=== PATIENT | female | born 1930 | race Caucasian/White ===

== ENCOUNTER → 2016-12-27 08:56 | Outpatient (CLI) | payer MEDICARE, BC ==
[2016-05-25 10:49] VITALS: BMI 24.7
[~2016-12-27 08:56] MED LIST: ARTIFICIAL TEAR15 ML EACH EYE; ASPIRIN325 MG PO; ATENOLOL25 MG PO; BAYER CHEWABLE81 MG PO; BETAPACE 80 MG80 MG PO; CARDIZEM CD240 MG PO; COLACE100 MG PO; CORDARONE200 MG PO; COUMADIN3 MG PO; COUMADIN5 MG PO; DILAUDID2 MG PO; ESTRACE1 MG PO; FEMARA2.5 MG PO; FEXOFENADINE H180 MG PO; FORMULA E400 UNIT PO; HYDROCODON-ACE1 EAC7 PO; HYDROCODONE-APA1 TAB PO; IMDUR30 MG; IMDUR30 MG PO; K-DUR20 MEQ PO; LASIX20 MG PO; LEVAQUIN250 MG PO; LEVAQUIN500 MG PO; MINIPRIN81 MG PO; MOTRIN400 MG PO; OMEGA-3100 MG; PLAVIX75 MG PO; PREDNISONE20 MG; PREMARIN0.3 MG; PREMARIN1.25 MG PO; PROTONIX40 MG PO; SYNTHROID125 MCG PO; SYNTHROID88 MCG PO; TRIPLE ANTIB28.35 GM TP; VITAMIN D31000 UNIT PO; VITAMIN E400 UNI2 PO; WARFARIN; ZOCOR40 MG PO
[2016-12-27 10:37] LABS: INR 1.66 (0.85-1.17); PROTIME 19.6 SECONDS (11.6-15.0)
== END | disposition home or self-care (01) ==
LOC: D.LABREF 08:56
PROVIDERS: Family Medicine
DX: Z51.81 Encounter for therapeutic drug level monitoring (principal); Z79.01 Long term (current) use of anticoagulants

== ENCOUNTER → 2017-01-28 16:23 | Outpatient (CLI) | payer MEDICARE, BC ==
[2016-05-25 10:49] VITALS: BMI 24.7
== END | disposition home or self-care (01) ==
LOC: D.MAMMO 09:00
DX: Z85.3 Personal history of malignant neoplasm of breast (principal)

== ENCOUNTER → 2017-08-07 12:48 | Outpatient (CLI) | payer MEDICARE, BC ==
[2016-05-25 10:49] VITALS: BMI 24.7
== END | disposition home or self-care (01) ==
LOC: D.MAMMO 08:30
DX: R92.8 Other abnormal and inconclusive findings on diagnostic imaging of breast (principal)

== ENCOUNTER 2018-06-09 11:45 | Emergency (ER) | payer MEDICARE, BC ==
[~2018-06-09] VITALS: Ht 157.5 cm; Wt 53.2 kg
[2018-06-09 11:57] VITALS: Ht 157.5 cm; Wt 53.2 kg
[2018-06-09 12:26] LABS: BASOPHILS 0.2 % (0-2); EOSINOPHILS 1.1 % (0-7); HEMATOCRIT 39.7 % (36.0-48.0); HEMOGLOBIN 13.3 g/dL (12-16); IMMATURE GRANULOCYTES 0.2 % (0-5); LYMPHOCYTES 18.7 % (15-50); MCH 32.4 pg (26.0-34.0); MCHC 33.5 g/dL (31.0-37.0); MCV 96.6 fL (80.0-100.0); MEAN PLATELET VOLUME 9.6 fL (7.4-10.4); MONOCYTES 10.3 % (2-11); NEUTROPHILS 69.5 % (40-80); RBC 4.11 10x6/uL (4.00-5.40); RDW 13.6 % (11.5-14.5); WBC 8.4 10x3/uL (4.8-10.8)
[2018-06-09 12:39] LABS: INR 1.13 (0.85-1.17); PROTIME 14.1 SECONDS (11.6-15.0)
[2018-06-09 12:45] LABS: PLATELET COUNT 254 10x3/uL (130-400)
[2018-06-09 12:52] LABS: ALBUMIN 3.3 g/dL (3.4-5.0); ALKALINE PHOSPHATASE 59 U/L (46-116); ALT (SGPT) 20 U/L (10-68); BILIRUBIN - TOTAL 0.35 mg/dL (0.2-1.3); CALC OSMOLALITY 273 mosm/kg (275-300); CALCIUM 9.2 mg/dL (8.5-10.1); CARBON DIOXIDE 27.3 mmol/L (21.0-32.0); CHLORIDE - SERUM 103 mmol/L (98-107); CREATININE - SERUM 0.9 mg/dL (0.6-1.3); GLUCOSE 94 mg/dL (74-106); POTASSIUM - SERUM 3.6 mmol/L (3.5-5.1); PROTEIN - SERUM 6.9 g/dL (6.4-8.2); SODIUM 137 mmol/L (136-145); UREA NITROGEN 12 mg/dL (7-18); eGFR NON AFRICAN AMERICAN 63 mL/min (90-120)
[2018-06-09 13:04] LABS: CREATINE KINASE 36 UL (21-215); TROPONIN-I < 0.017 ng/mL (0.000-0.060)
[2018-06-09 15:06] VITALS: BP 121/69
== END 2018-06-09 15:12 | disposition home or self-care (01) ==
LOC: D.ER 11:45
PROVIDERS: Family Medicine
DX: K59.00 Constipation, unspecified (principal); R14.3 Flatulence; I10 Essential (primary) hypertension; I49.3 Ventricular premature depolarization

== ENCOUNTER 2018-09-18 12:30 | Emergency (ER) | payer MEDICARE, BC ==
[~2018-09-18] VITALS: Ht 157.5 cm; Wt 54.4 kg
[2018-09-18 12:37] VITALS: Ht 157.5 cm; Wt 54.4 kg
[2018-09-18 12:58] LABS: BASOPHILS 0.1 % (0-2); EOSINOPHILS 0.7 % (0-7); HEMOGLOBIN 14.1 g/dL (12-16); IMMATURE GRANULOCYTES 0.3 % (0-5); LYMPHOCYTES 16.5 % (15-50); MCH 31.8 pg (26.0-34.0); MCHC 33.6 g/dL (31.0-37.0); MCV 94.6 fL (80.0-100.0); MEAN PLATELET VOLUME 9.6 fL (7.4-10.4); MONOCYTES 8.4 % (2-11); RBC 4.44 10x6/uL (4.00-5.40); RDW 14.2 % (11.5-14.5); WBC 8.8 10x3/uL (4.8-10.8)
[2018-09-18 13:00] LABS: PLATELET COUNT 170 10x3/uL (130-400)
[2018-09-18 13:19] LABS: APTT 24.7 SECONDS (22.8-39.4); INR 1.54 (0.85-1.17); PROTIME 17.9 SECONDS (11.6-15.0)
[2018-09-18 13:26] LABS: ALBUMIN 3.5 g/dL (3.4-5.0); ALKALINE PHOSPHATASE 53 U/L (46-116); ALT (SGPT) 23 U/L (10-68); BILIRUBIN - TOTAL 0.39 mg/dL (0.2-1.3); CALC OSMOLALITY 276 mosm/kg (275-300); CALCIUM 9.2 mg/dL (8.5-10.1); CARBON DIOXIDE 21.6 mmol/L (21.0-32.0); CHLORIDE - SERUM 102 mmol/L (98-107); CREATINE KINASE 48 UL (21-215); CREATININE - SERUM 0.8 mg/dL (0.6-1.3); GLUCOSE 91 mg/dL (74-106); POTASSIUM - SERUM 4.1 mmol/L (3.5-5.1); PROTEIN - SERUM 6.8 g/dL (6.4-8.2); SODIUM 138 mmol/L (136-145); TROPONIN-I < 0.017 ng/mL (0.000-0.060); UREA NITROGEN 15 mg/dL (7-18); eGFR NON AFRICAN AMERICAN 72 mL/min (90-120)
[2018-09-18 14:20] VITALS: BP 126/67
== END 2018-09-18 14:50 | disposition home or self-care (01) ==
LOC: D.ER 12:30
PROVIDERS: Family Medicine
DX: R07.9 Chest pain, unspecified (principal)

== ENCOUNTER 2019-01-25 12:09 | Observation (INO) | payer MEDICARE, BC ==
[2019-01-25] VITALS (7 sets, daily range): BP systolic 105–146; BP diastolic 48–75; BMI 20.1
[~2019-01-25 12:09] MED LIST changes: +SYNTHROID100 MCG PO; -SYNTHROID88 MCG PO
[2019-01-25 12:29] LABS: BASOPHILS 0.2 % (0-2); EOSINOPHILS 1.4 % (0-7); HEMATOCRIT 37.5 % (36.0-48.0); HEMOGLOBIN 12.2 g/dL (12-16); IMMATURE GRANULOCYTES 0.2 % (0-5); LYMPHOCYTES 17.8 % (15-50); MCH 29.5 pg (26.0-34.0); MCHC 32.5 g/dL (31.0-37.0); MCV 90.6 fL (80.0-100.0); MEAN PLATELET VOLUME 9.4 fL (7.4-10.4); NEUTROPHILS 71.4 % (40-80); RBC 4.14 10x6/uL (4.00-5.40); RDW 13.8 % (11.5-14.5); WBC 9.2 10x3/uL (4.8-10.8)
[2019-01-25 12:31] LABS: PLATELET COUNT 294 10x3/uL (130-400)
[2019-01-25 12:39] LABS: APTT 24.5 SECONDS (22.8-39.4); INR 1.28 (0.85-1.17); PROTIME 15.4 SECONDS (11.6-15.0)
[2019-01-25 12:44] LABS: ALBUMIN 3.2 g/dL (3.4-5.0); ALKALINE PHOSPHATASE 69 U/L (46-116); ALT (SGPT) 19 U/L (10-68); BILIRUBIN - TOTAL 0.33 mg/dL (0.2-1.3); CALC OSMOLALITY 275 mosm/kg (275-300); CALCIUM 9.4 mg/dL (8.5-10.1); CARBON DIOXIDE 25.8 mmol/L (21.0-32.0); CHLORIDE - SERUM 102 mmol/L (98-107); CREATININE - SERUM 0.8 mg/dL (0.6-1.3); GLUCOSE 93 mg/dL (74-106); POTASSIUM - SERUM 3.4 mmol/L (3.5-5.1); PROTEIN - SERUM 7.1 g/dL (6.4-8.2); SODIUM 138 mmol/L (136-145); UREA NITROGEN 13 mg/dL (7-18); eGFR NON AFRICAN AMERICAN 72 mL/min (90-120)
--- NOTE | 2019-01-25 12:52 | NUR ---
POC GLUCOSE 91
[2019-01-25 12:53] LABS: CREATINE KINASE 39 UL (21-215); MAGNESIUM - SERUM 1.9 mg/dL (1.8-2.4)
[2019-01-25 12:56] LABS: TROPONIN-I < 0.017 ng/mL (0.000-0.060)
--- NOTE | 2019-01-25 13:12 | NUR ---
REPORTS NO CHANGES IN CHEST PAIN. C/O HEADACHE. NTG TAB GIVEN. ERP INFORMED.
--- NOTE | 2019-01-25 14:46 | NUR ---
TRANSFER FROM ER BY STRETCHER. OREINTED TO ROOM. CALL LIGHT IN REACH. WILL CONT. PLAN OF CARE.
[2019-01-25] MEDS ORDERED: EPIPEN 2-P0.3 MG/0.3 IM (15:35)
[2019-01-25] MEDS ORDERED: FEMARA2.5 MG PO (15:36)
[2019-01-25] MEDS ORDERED: FISH OIL 1,0001 CA1 PO (15:36)
[2019-01-25] MEDS ORDERED: COUMADIN3 MG PO (15:44)
--- NOTE | 2019-01-25 15:59 | NUR ---
URINE SPECIMEN COLLECTED AND TAKEN TO LAB. WILL MONITOR.
[2019-01-25 18:36] LABS: CKMB 0.8 U/L (0.0-3.6); CREATINE KINASE 37 UL (21-215)
[2019-01-25 18:41] LABS: TROPONIN-I < 0.017 ng/mL (0.000-0.060)
--- NOTE | 2019-01-25 20:00 | NUR ---
INITIAL ROUNDS AND ASSESSMENT COMPLETED. PT RESTING IN BED WITH O2 @ 2L/NC. SALINE LOCK TO RFA. SR PER TELEMETRY. NO DISTRESS. MONITOR AND CPOC.
[2019-01-26 01:41] LABS: CKMB 0.7 U/L (0.0-3.6); CREATINE KINASE 32 UL (21-215); TROPONIN-I < 0.017 ng/mL (0.000-0.060)
--- NOTE | 2019-01-26 02:29 | NUR ---
PT RESTING IN BED WITH EYES CLOSED. SR/66 PER TELEMETRY. NO DISTRESS. MONITOR AND CPOC.
[2019-01-26 03:25] VITALS: BP 111/54
--- NOTE | 2019-01-26 06:30 | NUR ---
RECEIVED PT IN BED AAOX4 RESP UNLABORED SKIN W/D ASSISTED UP TO BATHROOM PT TOLERATED WELL
[2019-01-26 06:33] LABS: BASOPHILS 0.2 % (0-2); EOSINOPHILS 3.4 % (0-7); HEMATOCRIT 33.3 % (36.0-48.0); HEMOGLOBIN 10.5 g/dL (12-16); IMMATURE GRANULOCYTES 0.1 % (0-5); MCH 28.8 pg (26.0-34.0); MCHC 31.5 g/dL (31.0-37.0); MCV 91.5 fL (80.0-100.0); MEAN PLATELET VOLUME 9.8 fL (7.4-10.4); MONOCYTES 9.5 % (2-11); NEUTROPHILS 66.8 % (40-80); PLATELET COUNT 267 10x3/uL (130-400); RBC 3.64 10x6/uL (4.00-5.40); RDW 13.9 % (11.5-14.5)
[2019-01-26 07:03] LABS: CALC OSMOLALITY 280 mosm/kg (275-300); CALCIUM 8.7 mg/dL (8.5-10.1); CARBON DIOXIDE 28.3 mmol/L (21.0-32.0); CHLORIDE - SERUM 106 mmol/L (98-107); CKMB 0.7 U/L (0.0-3.6); CREATINE KINASE 33 UL (21-215); CREATININE - SERUM 0.8 mg/dL (0.6-1.3); GLUCOSE 86 mg/dL (74-106); MAGNESIUM - SERUM 1.9 mg/dL (1.8-2.4); SODIUM 141 mmol/L (136-145); TROPONIN-I < 0.017 ng/mL (0.000-0.060); UREA NITROGEN 16 mg/dL (7-18); eGFR NON AFRICAN AMERICAN 72 mL/min (90-120)
[2019-01-26 08:05] VITALS: BP 138/73
[2019-01-26 12:00] VITALS: BP 144/79
[2019-01-26 12:46] VITALS: BMI 20.3
--- NOTE | 2019-01-26 14:00 | NUR ---
RESTING QUIETLY NAD NOTED
--- NOTE | 2019-01-26 16:45 | NUR ---
REVIEQWED DISCHARGE INSTRUCTIONS WITH PT AND SON BOTH STATE UNDERSTANDING COPY GIVEN DCD SALINE LOCK TO RFA WITH IV CATHETER INTACT SITE FREE OF REDNESS OR EDEMA PT DISCHARGED HOME IN STABLE CONDITION WITH ALL PERSONAL BELONGINGS LEFT UNIT VIA W/C
--- NOTE | 2019-01-27 08:59 | MORECARE ---
CASE MANAGEMENT DISCHARGE SUMMARY PATIENT: WARREN TAPIA UNIT: [id number] ADM DATE: 01/25/19 AGE: 88 : 30 SEX: F ROOM/BED: D.2114 AUTHOR: ADELINA HOOVER PHYSICIAN: REFERRING PHYSICIAN: FREYA TRENT MD DATE OF SERVICE: 01/27/19 Discharge Plan Patient Name: WARREN TAPIA [facility] [facility] 1930 Planned Disposition: Home Anticipated Discharge Date: 01/26/19 Discharge Date: 01/26/2019 Expected LOS: 1 Initial Reviewer: [email or web address] Initial Review Date: 01/27/2019 Generated: 01/27/19 9:59 am Patient Name: WARREN TAPIA Page [phone] at 0859 All edits/amendments must be made on the electronic document DICTATION DATE: 01/27/1959 GOLF COURSE DESIGNER: YASHIRA 01/27/19 0859 RPT#: [id number] DC DATE:01/26/19 STATUS: DIS IN [facility] [address] [place] [address] END OF REPORT
--- NOTE | 2019-01-28 10:39 | HP ---
PATIENT: WARREN TAPIA MEDICAL RECORD: [id number] ACCOUNT: [id number] LOCATION:[address] : 30 ADMISSION DATE: 01/25/19 PCP: PIYUSH VAZQUEZ MD HISTORY AND PHYSICAL EXAMINATION ADMITTING DIAGNOSES: 1. Chest pain. 2. 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 3. Mitral regurgitation. 4. Coumadin anticoagulation. 5. Hyperlipidemia. 6. Hypertension. 7. Paroxysmal atrial fibrillation. HISTORY OF PRESENT ILLNESS: Mrs. Tapia presents with an acute onset of chest pain. This happened yesterday while she was at [facility]. She then had a near syncopal episode. No heart rate or blood pressure were obtained during the episode. Since she has been in the hospital, she has had no further episodes of chest discomfort, no further episodes of syncope or near syncope. She had an echocardiogram today revealing preserved LV function, sinus rhythm. Her valves are intact. She has mild to moderate mitral regurgitation. Aortic valve has no significant stenosis or regurgitation. PHYSICAL EXAMINATION: GENERAL APPEARANCE: Well-nourished, well-developed, appears stated age. Level of distress, comfortable. PSYCHIATRIC: Mental status, alert, normal affect. Orientation, oriented to time, place and person. EYES: Lids and conjunctiva, noninjected. No discharge, no pallor. ENT: Lips, teeth, gums, normal dentition. Oropharynx, no cyanosis, no pallor. NECK: Carotid arteries, bilateral normal upstroke, no bruits, no thrills. JUGULAR VEINS: No jugular venous pressure or distention. CERVICAL LYMPH NODES: Nontender, nonenlarged. THYROID: Not enlarged. Nontender. No nodules. LUNGS: Respiratory effort, unlabored. CHEST: Normal curvature. No thoracic deformity. No chest wall tenderness. Percussion, resonant. Auscultation, clear. No wheezes, no rales, no rhonchi. CARDIOVASCULAR: Precordial exam, nondisplaced. No heaves or pericardial thrills. Rate and rhythm, regular. Heart sounds, normal S1, normal S2. No S3, no gallop, no rub. Systolic murmur, not heard. Diastolic murmur, not heard. EXTREMITIES: No cyanosis, no edema. Peripheral pulses, full and equal in all extremities, except as noted. No bruits appreciated. ABDOMEN: Soft, nondistended. Normal aorta. No bruit. Nontender. No masses. Liver, nontender, no hepatomegaly. Spleen, nontender, no splenomegaly. MUSCULOSKELETAL: No joint tenderness. No joint swelling. No erythema. NEUROLOGICAL: Normal gait, normal strength, normal tone. SKIN: Warm and dry. OVERALL IMPRESSION: Chest pain of unknown etiology. Normal EKG, normal troponin, no further episodes of chest pain. Cardiac catheterization was performed 6 years ago. She had no disease at that time when she had her valves replaced. At this time, we will observe on telemetry, see if she has any arrhythmias, any further chest pain. Continue her current medications. HISTORY AND PHYSICAL [id number] WARREN TAPIA TRANSINT:[id number] Voice Confirmation ID: [id number] DOCUMENT ID: [id number] MARGO ESPOSITO MD at 1039 CC: [id number] DICTATION DATE: 01/26/19827 BURN TABLE OPERATOR: 01/26/19 1150 DIS IN 01/26/19 [place] [id number] [place] [address]
--- NOTE | 2019-01-28 10:39 | EC ---
PATIENT:WARREN TAPIA DATE OF SERVICE: 01/25/19 SEX: F MEDICAL RECORD: [id number] DATE OF : 30 LOCATION:D.M2 D.211 AGE OF PATIENT: 88 ADMISSION DATE: 01/25/19 REFERRING PHYSICIAN: INTERPRETING PHYSICIAN: MARGO SANCHES MD ECHOCARDIOGRAM REPORT ECHO CHARGES 4 ECHO COMPLETE Date: 01/26/19 CLINICAL DIAGNOSIS: HX OF MVR/AVR, CHEST PAIN, NEAR SYNCOPE ECHOCARDIOGRAPHIC MEASUREMENTS (adult normal given) AC root (d.<3.7cm) 2.7 cm LV Septum d (<1.2 cm> 0.5 cm Valve Excursion 1.7 cm LV Septum (systole) 1.0 cm Left Atria (s.<4.0cm> 2.4 cm LVPW d(<1.2cm) 0.8 cm RV (d.<2.3cm) 2.4 cm LVPW (sytole) 1.0 cm LV diastole(<5.6CM) 4.6 cm MV E-F(>70mm/sec) cm LV systole 3.7 cm LVOT Diameter 1.5 cm MV exc.(>10mm) cm Est.ejection fraction (50-75%) % DOPPLER: LVIT cm/sec A 125 cm/sec E 150 cm/sec LA cm/sec RVSP 26 mmHg LVOT 110 cm/sec AOP1/2T m/s Asc. Ao 153 cm/sec RVOT 49 cm/sec RA cm/sec PA 70 cm/sec AV Gradient Peak 9.3 mmHg AV Mean 4.2 mmHg AV Area 1.3 cm MV Gradient Peak 14.6 mmHg MV Mean 8.0 mmHg MV Area cm COMMENTS: Group Activities Aide: Naty SOTO Auto Wash Buffer: 1 Dr. Sanches TAPE# PACS Pericardial Effusion N DATE OF SERVICE: 01/26/2019 FINDINGS: 1. Left ventricular chamber size is within normal limits. Left ventricular systolic function is normal. Overall ejection fraction estimated at 50%. 2. Left atrium, right atrium, and right ventricular chamber sizes are within normal limits. 3. Valvular structures: Aortic valve and mitral valve are both replaced with tissue prosthesis, both have normal structure and function in this position. 4. Doppler interrogation reveals moderate mitral regurgitation, trace tricuspid ECHOCARDIOGRAM REPORT [id number] WARREN TAPIA regurgitation, no other valvular insufficiency or stenosis. Pulmonary systolic pressure is estimated at 27 mmHg. 5. No evidence of pericardial effusion or left ventricular thrombus. TRANSINT:[id number] Voice Confirmation ID: [id number] DOCUMENT ID: [id number] MARGO SANCHES MD at 1039 CC: [id number] DICTATION DATE: 01/26/19 1159 CONVENTION SERVICES MANAGER: 01/26/19 1408 DIS IN 01/26/19 [facility] [address] [place] [id number]
== END 2019-01-26 16:45 | disposition home or self-care (01) ==
LOC: D.ER 12:09 → OBSVTIME 13:54 → D.EDHOLD 13:54 → D.M2 14:02
PROVIDERS: Family Medicine; ADMIT Internal Medicine Nephrology; ATTEND Internal Medicine Nephrology
DX: R07.89 Other chest pain (principal); Z95.2 Presence of prosthetic heart valve; I34.0 Nonrheumatic mitral (valve) insufficiency; Z79.01 Long term (current) use of anticoagulants; E78.5 Hyperlipidemia, unspecified; I10 Essential (primary) hypertension; I48.0 Paroxysmal atrial fibrillation; R55 Syncope and collapse; E03.9 Hypothyroidism, unspecified; K21.9 Gastro-esophageal reflux disease without esophagitis

== ENCOUNTER 2019-03-01 12:21 | Emergency (ER) | payer MEDICARE, BC ==
[~2019-03-01 12:21] MED LIST changes: +EPIPEN 2-P0.3 MG/0.3 IM; +FISH OIL 1,0001 CA1 PO
[2019-03-01 12:29] VITALS: BMI 24.7
[2019-03-01 13:18] LABS: BASOPHILS 0.4 % (0-2); EOSINOPHILS 6.7 % (0-7); IMMATURE GRANULOCYTES 0.3 % (0-5); LYMPHOCYTES 19.9 % (15-50); MCH 29.1 pg (26.0-34.0); MCHC 32.4 g/dL (31.0-37.0); MCV 89.9 fL (80.0-100.0); MEAN PLATELET VOLUME 9.5 fL (7.4-10.4); MONOCYTES 9.2 % (2-11); NEUTROPHILS 63.5 % (40-80); PLATELET COUNT 260 10x3/uL (130-400); RBC 3.78 10x6/uL (4.00-5.40); RDW 14.5 % (11.5-14.5); WBC 7.5 10x3/uL (4.8-10.8)
[2019-03-01 13:28] LABS: ALKALINE PHOSPHATASE 63 U/L (46-116); ALT (SGPT) 17 U/L (10-68); BILIRUBIN - TOTAL 0.36 mg/dL (0.2-1.3); CALC OSMOLALITY 278 mosm/kg (275-300); CALCIUM 9.3 mg/dL (8.5-10.1); CARBON DIOXIDE 26.7 mmol/L (21.0-32.0); CHLORIDE - SERUM 105 mmol/L (98-107); CREATININE - SERUM 0.7 mg/dL (0.6-1.3); GLUCOSE 83 mg/dL (74-106); POTASSIUM - SERUM 3.5 mmol/L (3.5-5.1); PROTEIN - SERUM 6.7 g/dL (6.4-8.2); SODIUM 140 mmol/L (136-145); UREA NITROGEN 15 mg/dL (7-18); eGFR NON AFRICAN AMERICAN 83 mL/min (90-120)
[2019-03-01 13:40] LABS: CKMB 1.8 U/L (0.0-3.6); CREATINE KINASE 44 UL (21-215); PRO BNP 238 pg/mL (0-450)
[2019-03-01 13:41] LABS: TROPONIN-I < 0.017 ng/mL (0.000-0.060)
[2019-03-01 15:45] VITALS: BP 144/63
== END 2019-03-01 15:46 | disposition home or self-care (01) ==
LOC: D.ER 12:21
PROVIDERS: Emergency Medicine
DX: R06.00 Dyspnea, unspecified (principal); D64.9 Anemia, unspecified; R07.9 Chest pain, unspecified

== ENCOUNTER → 2019-03-12 10:17 | Outpatient (CLI) | payer MEDICARE, BC ==
[2019-03-01 12:29] VITALS: BMI 24.7
--- NOTE | 2019-03-13 13:44 | EC ---
PATIENT:WARREN TAPIA DATE OF SERVICE: 03/12/19 SEX: F MEDICAL RECORD: [id number] DATE OF : 30 [facility] AGE OF PATIENT: 88 ADMISSION DATE: 03/12/19 REFERRING PHYSICIAN: INTERPRETING PHYSICIAN: MARGO SANCHES MD ECHOCARDIOGRAM REPORT ECHO CHARGES 4 ECHO COMPLETE Date: 03/12/19 CLINICAL DIAGNOSIS: MR/MV REPAIR/AVR H/O HTN/A-FIB ECHOCARDIOGRAPHIC MEASUREMENTS (adult normal given) AC root (d.<3.7cm) 2.3 cm LV Septum d (<1.2 cm> 1.5 cm Valve Excursion 0.8 cm LV Septum (systole) 1.9 cm Left Atria (s.<4.0cm> 3.0 cm LVPW d(<1.2cm) 1.0 cm RV (d.<2.3cm) 2.1 cm LVPW (sytole) 1.7 cm LV diastole(<5.6CM) 3.8 cm MV E-F(>70mm/sec) cm LV systole 2.0 cm LVOT Diameter 1.6 cm MV exc.(>10mm) cm Est.ejection fraction (50-75%) % DOPPLER: LVIT cm/sec A 176 cm/sec E 158 cm/sec LA cm/sec RVSP 32.0 mmHg LVOT 112 cm/sec AOP1/2T m/s Asc. Ao 107 cm/sec RVOT 65.0 cm/sec RA cm/sec PA 80.0 cm/sec AV Gradient Peak 4.6 mmHg AV Mean 2.3 mmHg AV Area 2.2 cm MV Gradient Peak 13.3 mmHg MV Mean 6.8 mmHg MV Area cm COMMENTS: OP - HC Reservation Manager: Geovany ANTOINE BRYAN Lead Teacher: [address] Dr. Sanches TAPE# PACS Pericardial Effusion N DATE OF SERVICE: 03/12/2019 PROCEDURE: Echocardiogram. FINDINGS: 1. Left ventricular chamber size is within normal limits. Left ventricular systolic function is normal. Overall ejection fraction estimated at 50%. 2. Left atrium, right atrium, and right ventricular chamber sizes are within normal limits. 3. Valvular structures: Aortic valve is replaced with a tissue prosthesis with ECHOCARDIOGRAM REPORT [id number] WARREN TAPIA normal structure and function in this position. The remaining valvular structures have normal structure and motion. 4. Doppler interrogation reveals only trace mitral regurgitation, mild tricuspid regurgitation, no other valvular insufficiency or stenosis. Pulmonary systolic pressure is normal estimated at 32 mmHg. 5. No evidence of pericardial effusion or left ventricular thrombus. TRANSINT:[id number] Voice Confirmation ID: [id number] DOCUMENT ID: [id number] MARGO SANCHES MD at 1344 CC: [id number] DICTATION DATE: 03/13/[address] INSPECTOR: 03/13/19 1115 [facility] CLI 03/12/[address] [address]
== END | disposition home or self-care (01) ==
LOC: D.HCCARDIO 10:17
PROVIDERS: ATTEND Internal Medicine Interventional Cardiology
DX: I34.0 Nonrheumatic mitral (valve) insufficiency (principal)

== ENCOUNTER 2019-03-23 08:45 | Inpatient (IN) | payer MEDICARE, BC ==
[~2019-03-23] VITALS: Ht 157.5 cm; Wt 51.3 kg
[2019-03-23] MEDS ORDERED: VITAMIN D31000 UNI2 PO ×2 (08:52→08:53)
[2019-03-23 09:36] LABS: BASOPHILS 0.4 % (0-2); HEMATOCRIT 34.2 % (36.0-48.0); HEMOGLOBIN 11.1 g/dL (12-16); IMMATURE GRANULOCYTES 0.3 % (0-5); LYMPHOCYTES 22.5 % (15-50); MCHC 32.5 g/dL (31.0-37.0); MCV 89.3 fL (80.0-100.0); MEAN PLATELET VOLUME 9.8 fL (7.4-10.4); MONOCYTES 7.9 % (2-11); NEUTROPHILS 61.9 % (40-80); RBC 3.83 10x6/uL (4.00-5.40); RDW 15.2 % (11.5-14.5); WBC 7.7 10x3/uL (4.8-10.8)
[2019-03-23 09:38] LABS: PLATELET COUNT 206 10x3/uL (130-400)
[2019-03-23 09:57] LABS: ALKALINE PHOSPHATASE 62 U/L (46-116); ALT (SGPT) 16 U/L (10-68); BILIRUBIN - TOTAL 0.45 mg/dL (0.2-1.3); CALC OSMOLALITY 279 mosm/kg (275-300); CARBON DIOXIDE 29.2 mmol/L (21.0-32.0); CHLORIDE - SERUM 104 mmol/L (98-107); CREATININE - SERUM 0.8 mg/dL (0.6-1.3); GLUCOSE 83 mg/dL (74-106); POTASSIUM - SERUM 3.6 mmol/L (3.5-5.1); PROTEIN - SERUM 6.4 g/dL (6.4-8.2); SODIUM 141 mmol/L (136-145); UREA NITROGEN 12 mg/dL (7-18); eGFR NON AFRICAN AMERICAN 72 mL/min (90-120)
[2019-03-23 10:08] LABS: CKMB 1.2 U/L (0.0-3.6); CREATINE KINASE 45 UL (21-215); TROPONIN-I < 0.017 ng/mL (0.000-0.060)
[2019-03-23 10:10] LABS: APPEARANCE CLEAR (CLEAR); COLOR YELLOW (YELLOW)
[2019-03-23 10:11] LABS: BACTERIA MANY /hpf (NONE SEEN); BILIRUBIN NEGATIVE (NEGATIVE); EPITHELIAL CELLS 0-5 /hpf (0-5); GLUCOSE NEGATIVE (NEGATIVE); KETONE NEGATIVE (NEGATIVE); NITRITE POSITIVE (NEGATIVE); PROTEIN NEGATIVE (NEGATIVE); RED CELLS - URINE 0-5 /hpf (0-5); SPECIFIC GRAVITY 1.005 (1.005-1.020); UROBILINOGEN NORMAL (NORMAL)
--- NOTE | 2019-03-23 12:05 | NUR ---
PT STARTED COMPLAINING OF PAIN AND ITCHING TO THE LEFT ARM, PROXIMAL FROM IV SITE AFTER LEVAQUIN INFUSED. NOTED SLIGHT REDNESS TO THE AREA WELL PATIENT SCRATCHING THE AREA. NOTIFIED DR. ECHAVARRIA IMMEDIATELY. HE ORDERED 25MG BENADRYL IV.
--- NOTE | 2019-03-23 15:24 | NUR ---
RECEIVED PT FROM ER. PT IS AA BUT CONFUSED TO TIME AND SITUATION. SON AT BEDSIDE. PT IS UP WITH ASSIST. RR EVEN AND UNLABORED ON RA. VSS AND WNL. NS INFUSING @125ML/HR VIA L.AC PIV. QUICKSTART, HISTORY, AND MED REQ COMPLETE. TELEMETRY PLACED ON PT. NOTIFIED CHARGE NURSE FOR NAPHTHALENE OPERATOR. WILL CTM.
--- NOTE | 2019-03-23 15:36 | NUR ---
PT IS RUNNING NORMAL SINUS RHTHYM AT 70. ROGER MAT PLACED ON BED. WILL CTM.
--- NOTE | 2019-03-23 15:40 | MORECARE ---
CASE MANAGEMENT DISCHARGE SUMMARY PATIENT: WARREN TAPIA UNIT: [id number] ADM DATE: 03/23/19 AGE: 88 : 30 SEX: F ROOM/BED: D.1205 AUTHOR: KIKO,DOC PHYSICIAN: REFERRING PHYSICIAN: WANDA THOMAS MD DATE OF SERVICE: 03/23/19 Discharge Plan Patient Name: WARREN TAPIA Facility: [facility]:[place] : 1930 Planned Disposition: Assisted Living Anticipated Discharge Date: 03/25/19 Discharge Date: Expected LOS: 2 Initial Reviewer: [email or web address] Initial Review Date: 03/23/2019 Generated: 03/23/19 4:40 pm Comments DCP- Discharge Planning Updated by [email or web address]: Irasema Lim on 03/23/19 2:[address] Patient Name: WARREN TAPIA Admission Status: ER Accout number: [id number] Admission Date: 03-23-2019 : 1930 Admission Diagnosis: Attending: WANDA THOMAS Current LOS: 1 Anticipated DC Date: 03-25-2019 Planned Disposition: Assisted Living Primary Insurance: MEDICARE A & B Discharge Planning Comments: CM met with patient and her son to complete initial dc planning assessment. CM educated patient on the CM role and verbal consent given by patient to complete assessment. CM verified patient's address, phone number, and emergency contact phone numbers. Patient lives at [facility] alone. At discharge patient plans to return to independent living and feels this is a safe discharge. CM discussed availability of home health, rehab services, and medical equipment. Patient denied known discharge needs at this time. Patient reports her son will transport er home at time of discharge. CM will continue to follow and will assist as needed with dc plans/needs. Endoscopy Specialty Technician: Irasema Lim RN, [facility] DCPIA - Discharge Planning Initial Assessment Updated by [email or web address]: Irasema Lim on 03/23/19 3:36 pm * Is the patient Alert and Oriented? Yes * How many steps to enter\exit or inside your home? None * PCP Dr. De La Rosa * Pharmacy [facility] * Preadmission Environment [facility] * Other Environment [facility] * Facility Name [facility] * ADLs Independent * Equipment Rolling Walker * List name and contact numbers for known caregivers / representatives who currently or will assist patient after discharge: Harvey wiley - [phone] * Verbal permission to speak to the caregivers and representatives has been obtained from the patient. Yes * Community resources currently utilized None * Additional services required to return to the preadmission environment? No * Can the patient safely return to the preadmission environment? Yes * Has this patient been hospitalized within the prior 30 days at any hospital? No Patient Name: WARREN TAPIA Page [phone] at 1540 All edits/amendments must be made on the electronic document DICTATION DATE: 03/23/191539 BUSINESS DEVELOPMENT OFFICER: YASHIRA 03/23/191539 RPT#: [id number] DC DATE: STATUS: ADM IN [facility] [address] [place] [address] END OF REPORT
[2019-03-23 15:47] VITALS: BP 144/64; BMI 19.0
--- NOTE | 2019-03-23 16:32 | NUR ---
PREVIOUS PIV IN THE LEFT AC KEPT OCCLUDING. STARTED NEW PIV TO THE LEFT FOREARM 22 GA X1 ATTEMPT. PT TOLERATED WELL. FLUSHED WITH 10ML NS TO CONFIRM PATENCY. NS CURRENTLY INFUSING @125ML/HR VIA L.FOR PIV. WILL CTM.
--- NOTE | 2019-03-23 18:33 | NUR ---
PT CURRENTLY LYING SEMI FOWLERS. CALL LIGHT W/I REACH. EATING DINNER. RR EVEN AND UNLABORED ON RA. NS INFUSING @125ML/HR VIA L.FOR PIV. NO S/S OF DISTRESS NOTED. PT INSTRUCTED ON FALL PRECAUTIONS AND NEED TO CALL FOR HELP BEFORE GETTING UP. PT VERBALIZED UNDERSTANDING. NO S/S OF DISTRESS NOTED. WILL CTM.
--- NOTE | 2019-03-23 19:48 | NUR ---
PATIENT RESTING IN BED WITH NO S/S OF DISTRESS. PATIENT DENIES OTHER NEEDS AT THIS TIME. BED IN LOWEST POSITION AND CALL LIGHT WITHIN REACH. ENCOURAGED THE PATIENT TO CALL IF SHE HAS NEEDS. WILL CONTINUE TO MONITOR.
[2019-03-23 19:56] VITALS: BP 125/53
[2019-03-23 23:37] VITALS: BP 120/57
[2019-03-24 03:59] VITALS: BP 150/59
[2019-03-24 07:10] LABS: BASOPHILS 0.6 % (0-2); EOSINOPHILS 9.4 % (0-7); HEMATOCRIT 34.9 % (36.0-48.0); IMMATURE GRANULOCYTES 0.1 % (0-5); LYMPHOCYTES 16.9 % (15-50); MCH 28.6 pg (26.0-34.0); MCHC 31.5 g/dL (31.0-37.0); MCV 90.6 fL (80.0-100.0); MEAN PLATELET VOLUME 10.1 fL (7.4-10.4); MONOCYTES 11.6 % (2-11); NEUTROPHILS 61.4 % (40-80); RBC 3.85 10x6/uL (4.00-5.40); RDW 15.3 % (11.5-14.5); WBC 6.8 10x3/uL (4.8-10.8)
[2019-03-24 07:13] LABS: PLATELET COUNT 255 10x3/uL (130-400)
[2019-03-24 07:20] LABS: CALC OSMOLALITY 286 mosm/kg (275-300); CALCIUM 8.8 mg/dL (8.5-10.1); CARBON DIOXIDE 29.1 mmol/L (21.0-32.0); CHLORIDE - SERUM 110 mmol/L (98-107); CKMB 1.2 U/L (0.0-3.6); CREATINE KINASE 45 UL (21-215); CREATININE - SERUM 0.9 mg/dL (0.6-1.3); GLUCOSE 80 mg/dL (74-106); MAGNESIUM - SERUM 1.9 mg/dL (1.8-2.4); POTASSIUM - SERUM 3.8 mmol/L (3.5-5.1); SODIUM 145 mmol/L (136-145); TROPONIN-I < 0.017 ng/mL (0.000-0.060); UREA NITROGEN 10 mg/dL (7-18); eGFR NON AFRICAN AMERICAN 62 mL/min (90-120)
[2019-03-24 08:27] VITALS: Ht 157.5 cm; Wt 51.3 kg
--- NOTE | 2019-03-24 10:08 | NUR ---
PT UP IN BED, RESTING WITH EYES OPEN AND LIGHTS OFF. ASSISTED TO RESTROOM, STAND BY ASSIST ONLY. NO COMPLICATIONS. IV INFUSING TO L WRIST, PATENT NONTENDER. FALL PRECAUTIONS IN PLACE. BED IN LOWEST POSTION, SIDERAILS UP X 2. CALL LIGHT AND BEDSIDE TABLE IN REACH. NO COMPLAINTS VOICED AT THIS TIME. WILL CONTINUE TO MONITOR.
[2019-03-24 11:26] LABS: INR 1.46 (0.85-1.17); PROTIME 17.1 SECONDS (11.6-15.0)
[2019-03-24 13:40] VITALS: BP 146/50
--- NOTE | 2019-03-24 15:01 | NUR ---
I have reviewed this patient and I concur with the Shift Assessment completed by the Licensed Practical Nurse today this shift.
[2019-03-24 19:33] VITALS: BP 134/57
--- NOTE | 2019-03-24 23:28 | NUR ---
HAS BEEN UP TO BR TO VOID SEVERAL TIMES SO FAR THIS SHIFT. ACTIVATES BED ALARM. MORE CONFUSED. ROGER ALARM IN USE. CL IN REACH.
[2019-03-25 00:10] VITALS: BP 129/64
[2019-03-25 07:16] LABS: BASOPHILS 0.4 % (0-2); EOSINOPHILS 10.1 % (0-7); HEMOGLOBIN 11.1 g/dL (12-16); IMMATURE GRANULOCYTES 0.3 % (0-5); LYMPHOCYTES 17.5 % (15-50); MCH 29.4 pg (26.0-34.0); MCHC 32.6 g/dL (31.0-37.0); MCV 90.2 fL (80.0-100.0); MEAN PLATELET VOLUME 10.3 fL (7.4-10.4); MONOCYTES 9.6 % (2-11); NEUTROPHILS 62.1 % (40-80); PLATELET COUNT 254 10x3/uL (130-400); RBC 3.77 10x6/uL (4.00-5.40); RDW 15.3 % (11.5-14.5); WBC 7.1 10x3/uL (4.8-10.8)
[2019-03-25 07:53] LABS: ALBUMIN 2.9 g/dL (3.4-5.0); ALKALINE PHOSPHATASE 62 U/L (46-116); ALT (SGPT) 13 U/L (10-68); BILIRUBIN - TOTAL 0.47 mg/dL (0.2-1.3); CALC OSMOLALITY 277 mosm/kg (275-300); CALCIUM 9.1 mg/dL (8.5-10.1); CARBON DIOXIDE 25.1 mmol/L (21.0-32.0); CHLORIDE - SERUM 107 mmol/L (98-107); CREATININE - SERUM 0.6 mg/dL (0.6-1.3); GLUCOSE 84 mg/dL (74-106); POTASSIUM - SERUM 3.5 mmol/L (3.5-5.1); PROTEIN - SERUM 6.4 g/dL (6.4-8.2); SODIUM 141 mmol/L (136-145); UREA NITROGEN 7 mg/dL (7-18); eGFR NON AFRICAN AMERICAN > 90 mL/min (90-120)
[2019-03-25 08:09] VITALS: BP 121/59
[2019-03-25 08:20] LABS: INR 1.37 (0.85-1.17); PROTIME 16.3 SECONDS (11.6-15.0)
--- NOTE | 2019-03-25 09:03 | NUR ---
AM MEDS GIVEN AT THIS TIME. PT STATES THAT SHE WANTS TO GO HOME, ASKING WHEN THE DOCTOR WILL BE MAKING HIS ROUNDS. INFORMED PT THAT I DID NOT KNOW A TIME. BUT SOMEONE WOULD BE BY TO SEE HER TODAY. PT STATES " MY SON IS LEAVING FOR [place], SO I HAVE TO GO HOME TODAY." PT DENIES ANY NEEDS AT THIS TIME. CALL LIGHT IN REACH, NAD NOTED,W ILL CONTINUE TO MONITOR.
--- NOTE | 2019-03-25 09:48 | NUR ---
HELPED PT TO BATHROOM AND BACK TO BED, PT STATES "YOU DONT HAVE TO HELP ME, I CAN GO ON MY OWN. IF YOU HELP ME THEN THE DOCTOR WILL NOT LET ME GO HOME." INFORMED PT THAT SINCE SHE HAS HISTORY OF FALLS THAT WE HAVE TO HELP TO BATHROOM AND HAVE ROGER ALARM ON. PT NOT VERY HAPPY BUT COOPERATIVE. DENIES ANY NEEDS AT THIS TIME. CALL LIGHT IN REACH, ROGER ALARM ON, NAD NOTED, WILL CONTINUE TO MONITOR.
--- NOTE | 2019-03-25 10:00 | EC ---
PATIENT:WARREN TAPIA DATE OF SERVICE: 03/23/19 SEX: F MEDICAL RECORD: [id number] DATE OF : 30 LOCATION:D.M3 D.120 AGE OF PATIENT: 88 ADMISSION DATE: 03/23/19 REFERRING PHYSICIAN: INTERPRETING PHYSICIAN: MARGO SANCHES MD ECHOCARDIOGRAM REPORT ECHO CHARGES 4 ECHO COMPLETE Date: 03/24/19 CLINICAL DIAGNOSIS: SYNCOPE/ HX OF AVR ECHOCARDIOGRAPHIC MEASUREMENTS (adult normal given) AC root (d.<3.7cm) 3.2 cm LV Septum d (<1.2 cm> 1.3 cm Valve Excursion 1.5 cm LV Septum (systole) 1.5 cm Left Atria (s.<4.0cm> 3.1 cm LVPW d(<1.2cm) 1.3 cm RV (d.<2.3cm) 2.5 cm LVPW (sytole) 1.5 cm LV diastole(<5.6CM) 4.1 cm MV E-F(>70mm/sec) cm LV systole 3.0 cm LVOT Diameter 1.7 cm MV exc.(>10mm) cm Est.ejection fraction (50-75%) % DOPPLER: LVIT cm/sec A 147 cm/sec E 176 cm/sec LA cm/sec RVSP 18 mmHg LVOT 104 cm/sec AOP1/2T m/s Asc. Ao 124 cm/sec RVOT 86 cm/sec RA cm/sec PA 107 cm/sec AV Gradient Peak 6.16 mmHg AV Mean 3.82 mmHg AV Area 1.5 cm MV Gradient Peak 18.34mmHg MV Mean 9.25 mmHg MV Area cm COMMENTS: Polygraph Operator: 2 CLARISSA ZAMORA Director Channel: [address] Dr. [address] TAPE# PACS Pericardial Effusion N DATE OF SERVICE: FINDINGS: 1. Left ventricular chamber size is within normal limits. Left ventricular systolic function is normal. Overall ejection fraction estimated at 55%. 2. Left atrium, right atrium, right ventricle chamber size is within normal limits. 3. Valvular structures: Aortic valve is replaced with a tissue prosthesis with normal structure and function in this position. The remaining valvular structures have normal structure and motion. ECHOCARDIOGRAM REPORT [id number] WARREN TAPIA 4. Doppler interrogation reveals [id number] mitral regurgitation, no other valvular insufficiency or stenosis. Pulmonary systolic pressure is estimated at 18 mmHg. 5. No evidence of pericardial effusion or left ventricular thrombus. TRANSINT:[id number] Voice Confirmation ID: [id number] DOCUMENT ID: [id number] MARGO SANCHES MD at 1000 CC: [id number] DICTATION DATE: 03/24/19 1558 FLEET DISPATCH MANAGER: 03/25/19 0011 ADM IN [place] [id number] [place] [id number]
--- NOTE | 2019-03-25 10:00 | CN ---
PATIENT NAME:WARREN TAPIA MEDICAL RECORD: [id number] : 30 LOCATION:D. D.1205 ADMIT DATE: 03/23/19 ACCOUNT: [id number] CONSULTING PHYSICIAN: MARGO ESPOSITO MD REFERRING PHYSICIAN: WANDA THOMAS MD DATE OF CONSULTATION: 03/24/2019 CARDIOLOGY CONSULTATION DIAGNOSES: 1. Syncope. 2. Coronary artery disease. 3. Status post coronary artery bypass graft surgery. 4. Status post percutaneous transluminal coronary angioplasty stent. 5. Aortic valve replacement tissue prosthesis. 6. Paroxysmal atrial fibrillation. 7. Hypertension. 8. Hyperlipidemia. HISTORY OF PRESENT ILLNESS: Mrs. Tapia is known to us with a significant cardiac history of coronary artery disease, bypass surgery, aortic valve replacement, and atrial fibrillation. She presents with recurrent syncope. Here, she has not had any dysrhythmias. She has not had any chest pain or chest discomfort. Troponin is normal. EKG is with no ST-T abnormalities. An echocardiogram was performed, her overall LV function is normal. Her valvular structures are normal. The prosthetic valve in aortic position has normal structure and function. She has not had any hypotension since she has been here. PHYSICAL EXAMINATION: GENERAL APPEARANCE: Well-nourished, well-developed, appears stated age. Level of distress, comfortable. PSYCHIATRIC: Mental status, alert, normal affect. Orientation, oriented to time, place and person. EYES: Lids and conjunctiva, noninjected. No discharge, no pallor. ENT: Lips, teeth, gums, normal dentition. Oropharynx, no cyanosis, no pallor. NECK: Carotid arteries, bilateral normal upstroke, no bruits, no thrills. JUGULAR VEINS: No jugular venous pressure or distention. CERVICAL LYMPH NODES: Nontender, nonenlarged. THYROID: Not enlarged. Nontender. No nodules. LUNGS: Respiratory effort, unlabored. CHEST: Normal curvature. No thoracic deformity. No chest wall tenderness. Percussion, resonant. Auscultation, clear. No wheezes, no rales, no rhonchi. CARDIOVASCULAR: Precordial exam, nondisplaced. No heaves or pericardial thrills. Rate and rhythm, regular. Heart sounds, normal S1, normal S2. No S3, no gallop, no rub. Systolic murmur, not heard. Diastolic murmur, not heard. EXTREMITIES: No cyanosis, no edema. Peripheral pulses, full and equal in all extremities, except as noted. No bruits appreciated. ABDOMEN: Soft, nondistended. Normal aorta. No bruit. Nontender. No masses. Liver, nontender, no hepatomegaly. Spleen, nontender, no splenomegaly. MUSCULOSKELETAL: No joint tenderness. No joint swelling. No erythema. NEUROLOGICAL: Normal gait, normal strength, normal tone. SKIN: Warm and dry. OVERALL IMPRESSION: Recurrent syncope. I do not think that this is a cardiac CONSULT REPORT [id number] WARREN TAPIA in nature at this time. She is stable from a cardiac standpoint, stable from the standpoint of her valvular heart disease, stable from the standpoint of ischemic heart disease, stable from standpoint of dysrhythmia, no other cardiac workup or treatment is necessary. TRANSINT:[id number] Voice Confirmation ID: [id number] DOCUMENT ID: [id number] MARGO ESPOSITO MD at 1000 CC: [id number] DICTATION DATE: 03/24/19 1633 CORRECTIONAL CAPTAIN: 03/25/19 0042 ADM IN [facility] [address] [place] [id number]
--- NOTE | 2019-03-25 12:03 | MORECARE ---
CASE MANAGEMENT DISCHARGE SUMMARY PATIENT: WARREN TAPIA UNIT: [id number] ADM DATE: 03/23/19 AGE: 88 : 30 SEX: F ROOM/BED: D.1205 AUTHOR: KIKO,DOC PHYSICIAN: REFERRING PHYSICIAN: WANDA THOMAS MD DATE OF SERVICE: 03/25/19 Discharge Plan Patient Name: WARREN TAPIA Facility: [facility]:[place] : 1930 Planned Disposition: Assisted Living Anticipated Discharge Date: 03/25/19 Discharge Date: Expected LOS: 2 Initial Reviewer: [email or web address] Initial Review Date: 03/23/2019 Generated: 03/25/19 1:03 pm Comments DCP- Discharge Planning Updated by [email or web address]: Rachel Dalal on 03/25/19 10:[address] RECEIVED A TELEPHONE CALL FROM [facility] WITH [facility]. UPDATE PROVIDED REGARDING PROGRESS. WILL CONTACT HER WHEN MD PLAN IS DOCUMENTED. CONTACT PHONE NUMBER [phone]. DCP- Discharge Planning Updated by [email or web address]: Irasema Lim on 03/23/19 2:[address] Patient Name: WARREN TAPIA Admission Status: ER Accout number: [id number] Admission Date: 03-23-2019 : 1930 Admission Diagnosis: Attending: WANDA THOMAS Current LOS: 1 Anticipated DC Date: 03-25-2019 Planned Disposition: Assisted Living Primary Insurance: MEDICARE A & B Discharge Planning Comments: CM met with patient and her son to complete initial dc planning assessment. CM educated patient on the CM role and verbal consent given by patient to complete assessment. CM verified patient's address, phone number, and emergency contact phone numbers. Patient lives at [facility] alone. At discharge patient plans to return to independent living and feels this is a safe discharge. CM discussed availability of home health, rehab services, and medical equipment. Patient denied known discharge needs at this time. Patient reports her son will transport er home at time of discharge. CM will continue to follow and will assist as needed with dc plans/needs. Plate Filler: Irasema Lim RN, [facility] DCPIA - Discharge Planning Initial Assessment Updated by [email or web address]: Irasema Lim on 03/23/19 3:36 pm * Is the patient Alert and Oriented? Yes * How many steps to enter\exit or inside your home? None * PCP Dr. De La Rosa * Pharmacy [facility] * Preadmission Environment Independent [facility] * Other Environment [facility] * Facility Name [facility] * ADLs Independent * Equipment Rolling Walker * List name and contact numbers for known caregivers / representatives who currently or will assist patient after discharge: Harvey wiley - [phone] * Verbal permission to speak to the caregivers and representatives has been obtained from the patient. Yes * Community resources currently utilized None * Additional services required to return to the preadmission environment? No * Can the patient safely return to the preadmission environment? Yes * Has this patient been hospitalized within the prior 30 days at any hospital? No Coverage Notice Reviewer: [email or web address] Ivory Mason Notice Issued Date-Time: 03/24/2019 11:45 Notice Type: IM Discharge Notice Notice Delivered To: Patient Relationship to Patient: Self Production Planning Manager Name: Delivery Method: HAND - Hand Delivered Kiesha Days: Prior Verbal Notification: Recipient Understood Notice: Yes Recipient Signature: Yes Med Rec Note Co-signed by Attending: Coverage Notice Comment: Last DP export: 03/23/19 2:40 p Patient Name: WARREN TAPIA Page 95057 at 1203 All edits/amendments must be made on the electronic document DICTATION DATE: 03/25/19 1203 PULP MILL OPERATOR: YASHIRA 03/25/19 1203 RPT#: [id number] DC DATE: STATUS: ADM IN [facility] [address] [place] [address] END OF REPORT
[2019-03-25 12:54] VITALS: BP 131/44
[2019-03-25] MEDS ORDERED: CIPRO500 MG PO (13:18)
--- NOTE | 2019-03-25 14:03 | MORECARE ---
CASE MANAGEMENT DISCHARGE SUMMARY PATIENT: WARREN TAPIA UNIT: [id number] ADM DATE: 03/23/19 AGE: 88 : 30 SEX: F ROOM/BED: D.1205 AUTHOR: KIKO,DOC PHYSICIAN: REFERRING PHYSICIAN: WANDA THOMAS MD DATE OF SERVICE: 03/25/19 Discharge Plan Patient Name: WARREN TAPIA Facility: [facility]:[place] : 1930 Planned Disposition: Assisted Living Anticipated Discharge Date: 03/25/19 Discharge Date: Expected LOS: 2 Initial Reviewer: [email or web address] Initial Review Date: 03/23/2019 Generated: 03/25/19 3:02 pm Comments DCP- Discharge Planning Updated by [email or web address]: Rachel Dalal on 03/25/19 1:[address] CM VISITED TO EXPLAIN DISCHARGE IMM. PATIENT HAD NO QUESTIONS OR CONCERNS. STATED SHE UNDERSTOOD. SIGNATURE OBTAINED. SIGNED COPY TO THE PATIENT. SIGNED COPY TO THE HARD CHART. TELEPHONE CALL TO MS TAPIA IN THE FRONT OFFICE AT [facility] TO ADVISE OF DISCHARGE. TRANSPORTATION VIA [facility] WILL BE AVAILABLE BY 1500. CM WILL FAX DISCHARGE SUMMARY TO DELGADO AT [phone]. LUDY ADVISED THE PRIMARY NURSE, LYN. SHE WILL PREPARE THE DISCHARGE. DCP- Discharge Planning Updated by [email or web address]: Rachel Dalal on 03/25/19 10:[address] RECEIVED A TELEPHONE CALL FROM [facility] WITH [facility]. UPDATE PROVIDED REGARDING PROGRESS. WILL CONTACT HER WHEN MD PLAN IS DOCUMENTED. CONTACT PHONE NUMBER [phone]. DCP- Discharge Planning Updated by [email or web address]: Irasema Lim on 03/23/19 2:[address] Patient Name: WARREN TAPIA Admission Status: ER Accout number: [id number] Admission Date: 03-23-2019 : 1930 Admission Diagnosis: Attending: WANDA THOMAS Current LOS: 1 Anticipated DC Date: 03-25-2019 Planned Disposition: Assisted Living Primary Insurance: MEDICARE A & B Discharge Planning Comments: CM met with patient and her son to complete initial dc planning assessment. CM educated patient on the CM role and verbal consent given by patient to complete assessment. CM verified patient's address, phone number, and emergency contact phone numbers. Patient lives at [facility] alone. At discharge patient plans to return to independent living and feels this is a safe discharge. CM discussed availability of home health, rehab services, and medical equipment. Patient denied known discharge needs at this time. Patient reports her son will transport er home at time of discharge. CM will continue to follow and will assist as needed with dc plans/needs. Medical Office Scheduler: Irasema Lim RN, [facility] DCPIA - Discharge Planning Initial Assessment Updated by [email or web address]: Irasema Lim on 03/23/19 3:36 pm * Is the patient Alert and Oriented? Yes * How many steps to enter\exit or inside your home? None * PCP Dr. De La Rosa * Pharmacy [facility] * Preadmission Environment [facility] * Other Environment [facility] * Facility Name [facility] * ADLs Independent * Equipment Rolling Walker * List name and contact numbers for known caregivers / representatives who currently or will assist patient after discharge: Harvey Haines [facility] - [phone] * Verbal permission to speak to the caregivers and representatives has been obtained from the patient. Yes * Community resources currently utilized None * Additional services required to return to the preadmission environment? No * Can the patient safely return to the preadmission environment? Yes * Has this patient been hospitalized within the prior 30 days at any hospital? No Coverage Notice Reviewer: [email or web address] - Shari Mason Notice Issued Date-Time: 03/24/2019 11:45 Notice Type: IM Discharge Notice Notice Delivered To: Patient Relationship to Patient: Self Well Service Pump Equipment Operator Name: Delivery Method: HAND - Hand Delivered Kiesha Days: Prior Verbal Notification: Recipient Understood Notice: Yes Recipient Signature: Yes Med Rec Note Co-signed by Attending: Coverage Notice Comment: Last DP export: 03/25/19 11:03 a Patient Name: WARREN TAPIA Page 40474 at 1403 All edits/amendments must be made on the electronic document DICTATION DATE: 03/25/191401 VESSEL SCRAPPER HELPER: YASHIRA 03/25/19 140 RPT#: [id number] DC DATE: STATUS: ADM IN [facility] [address] [place] [address] END OF REPORT
--- NOTE | 2019-03-25 14:43 | NUR ---
PROVIDED VERBAL AND WRITTEN DISCHARGE TEACHING TO PT, WHO VERBALIZED UNDERSTANDING REGARDING TEACHING. D/C LT FA AND LT AC IV WITH CATHETER TIP INTACT. SON WILL BE HERE TO PICK PT UP.
--- NOTE | 2019-03-25 14:51 | MORECARE ---
CASE MANAGEMENT DISCHARGE SUMMARY PATIENT: WARREN TAPIA UNIT: [id number] ADM DATE: 03/23/19 AGE: 88 : 30 SEX: F ROOM/BED: D.1205 AUTHOR: KIKO,DOC PHYSICIAN: REFERRING PHYSICIAN: WANDA TOHMAS MD DATE OF SERVICE: 03/25/19 Discharge Plan Patient Name: WARREN TAPIA Facility: [facility]:[place] : 1930 Planned Disposition: Assisted Living Anticipated Discharge Date: 03/25/19 Discharge Date: Expected LOS: 2 Initial Reviewer: [email or web address] Initial Review Date: 03/23/2019 Generated: 03/25/19 3:50 pm Comments DCP- Discharge Planning Updated by [email or web address]: Rachel Dalal on 03/25/19 1:[address] PATIENT' SON WILL PROVIDE TRANSPORTATION TO HOME. LUDY TELEPHONED DELGADO AT [facility]. SHE IS AWARE. CM FAXED DISCHARGE SUMMARY REQUEST DCP- Discharge Planning Updated by [email or web address]: Rachel Dalal on 03/25/19 1:[address] CM VISITED TO EXPLAIN DISCHARGE IMM. PATIENT HAD NO QUESTIONS OR CONCERNS. STATED SHE UNDERSTOOD. SIGNATURE OBTAINED. SIGNED COPY TO THE PATIENT. SIGNED COPY TO THE HARD CHART. TELEPHONE CALL TO MS TAPIA IN THE FRONT OFFICE AT [facility] TO ADVISE OF DISCHARGE. TRANSPORTATION VIA [facility] WILL BE AVAILABLE BY 1500. LUDY WILL FAX DISCHARGE SUMMARY TO DELGADO AT [phone]. LUDY ADVISED THE PRIMARY NURSE, LYN. SHE WILL PREPARE THE DISCHARGE. DCP- Discharge Planning Updated by [email or web address]: Rachel Dalal on 03/25/19 10:[address] RECEIVED A TELEPHONE CALL FROM [place] WITH [facility]. UPDATE PROVIDED REGARDING PROGRESS. WILL CONTACT HER WHEN MD PLAN IS DOCUMENTED. CONTACT PHONE NUMBER [phone]. DCP- Discharge Planning Updated by [email or web address]: Irasema Lim on 03/23/19 2:[address] Patient Name: WARREN TAPIA Admission Status: ER Accout number: [id number] Admission Date: 03-23-2019 : 1930 Admission Diagnosis: Attending: WANDA THOMAS Current LOS: 1 Anticipated DC Date: 03-25-2019 Planned Disposition: Assisted Living Primary Insurance: MEDICARE A & B Discharge Planning Comments: CM met with patient and her son to complete initial dc planning assessment. CM educated patient on the CM role and verbal consent given by patient to complete assessment. CM verified patient's address, phone number, and emergency contact phone numbers. Patient lives at [facility] alone. At discharge patient plans to return to independent living and feels this is a safe discharge. CM discussed availability of home health, rehab services, and medical equipment. Patient denied known discharge needs at this time. Patient reports her son will transport er home at time of discharge. CM will continue to follow and will assist as needed with dc plans/needs. Inside Contractor Sales: Irasema Lim RN, [facility] DCPIA - Discharge Planning Initial Assessment Updated by [email or web address]: Irasema Lim on 03/23/19 3:36 pm * Is the patient Alert and Oriented? Yes * How many steps to enter\exit or inside your home? None * PCP Dr. De La Rosa * Pharmacy [facility] * Preadmission Environment [facility] * Other Environment [facility] * Facility Name [facility] * ADLs Independent * Equipment Rolling Walker * List name and contact numbers for known caregivers / representatives who currently or will assist patient after discharge: Harvey wiley - [phone] * Verbal permission to speak to the caregivers and representatives has been obtained from the patient. Yes * Community resources currently utilized None * Additional services required to return to the preadmission environment? No * Can the patient safely return to the preadmission environment? Yes * Has this patient been hospitalized within the prior 30 days at any hospital? No Coverage Notice Reviewer: [id number] - Shari Mason Notice Issued Date-Time: 03/24/2019 11:45 Notice Type: IM Discharge Notice Notice Delivered To: Patient Relationship to Patient: Self Manager Of School Name: Delivery Method: HAND - Hand Delivered Kiesha Days: Prior Verbal Notification: Recipient Understood Notice: Yes Recipient Signature: Yes Med Rec Note Co-signed by Attending: Coverage Notice Comment: Last DP export: 03/25/19 1:03 p Patient Name: WARREN TAPIA Page [id number] at 1451 All edits/amendments must be made on the electronic document DICTATION DATE: 03/25/191449 FREELANCE MAKEUP ARTIST: YASHIRA 03/25/191449 RPT#: [id number] DC DATE: STATUS: ADM IN [facility] [address] [place] [address] END OF REPORT
--- NOTE | 2019-03-25 15:49 | NUR ---
PT'S SON HERE TO FILE DRAWER FINISHER PT. PT LEFT UNIT VIA WHEELCHAIR, WITH ALL BELONGINGS, ACCOMPANIED BY SON, NAD NOTED.
--- NOTE | 2019-03-25 15:50 | MORECARE ---
CASE MANAGEMENT DISCHARGE SUMMARY PATIENT: WARREN TAPIA UNIT: [id number] ADM DATE: 03/23/19 AGE: 88 : 30 SEX: F ROOM/BED: D.1205 AUTHOR: KIKO,DOC PHYSICIAN: REFERRING PHYSICIAN: WANDA THOMAS MD DATE OF SERVICE: 03/25/19 Discharge Plan Patient Name: WARREN TAPIA Facility: [facility]:[place] : 1930 Planned Disposition: Assisted Living Anticipated Discharge Date: 03/25/19 Discharge Date: 03/25/2019 Expected LOS: 2 Initial Reviewer: [email or web address] Initial Review Date: 03/23/2019 Generated: 03/25/19 4:50 pm Comments DCP- Discharge Planning Updated by [email or web address]: Rachel Dalal on 03/25/19 1:[address] PATIENT' SON WILL PROVIDE TRANSPORTATION TO HOME. LUDY TELEPHONED DELGADO AT [facility]. SHE IS AWARE. LUDY FAXED DISCHARGE SUMMARY REQUEST DCP- Discharge Planning Updated by [email or web address]: Rachel Dalal on 03/25/19 1:[address] CM VISITED TO EXPLAIN DISCHARGE IMM. PATIENT HAD NO QUESTIONS OR CONCERNS. STATED SHE UNDERSTOOD. SIGNATURE OBTAINED. SIGNED COPY TO THE PATIENT. SIGNED COPY TO THE HARD CHART. TELEPHONE CALL TO MS TAPIA IN THE FRONT OFFICE AT [facility] TO ADVISE OF DISCHARGE. TRANSPORTATION VIA [facility] WILL BE AVAILABLE BY 1500. LUDY WILL FAX DISCHARGE SUMMARY TO DELGADO AT [phone]. LUDY ADVISED THE PRIMARY NURSE, LYN. SHE WILL PREPARE THE DISCHARGE. DCP- Discharge Planning Updated by [email or web address]: Rachel Dalal on 03/25/19 10:[address] RECEIVED A TELEPHONE CALL FROM [facility] WITH [facility]. UPDATE PROVIDED REGARDING PROGRESS. WILL CONTACT HER WHEN MD PLAN IS DOCUMENTED. CONTACT PHONE NUMBER [phone]. DCP- Discharge Planning Updated by [email or web address]: Irasema Lim on 03/23/19 2:[address] Patient Name: WARREN TAPIA Admission Status: ER Accout number: [id number] Admission Date: 03-23-2019 : 03-10-1931 Admission Diagnosis: Attending: WANDA THOMAS Current LOS: 1 Anticipated DC Date: 03-25-2019 Planned Disposition: Assisted Living Primary Insurance: MEDICARE A & B Discharge Planning Comments: CM met with patient and her son to complete initial dc planning assessment. CM educated patient on the CM role and verbal consent given by patient to complete assessment. CM verified patient's address, phone number, and emergency contact phone numbers. Patient lives at [facility] alone. At discharge patient plans to return to independent living and feels this is a safe discharge. CM discussed availability of home health, rehab services, and medical equipment. Patient denied known discharge needs at this time. Patient reports her son will transport er home at time of discharge. CM will continue to follow and will assist as needed with dc plans/needs. Environment Friendly Landscape Designer: Irasema Lim RN, [facility] DCPIA - Discharge Planning Initial Assessment Updated by [email or web address]: Irasema Lim on 03/23/19 3:36 pm * Is the patient Alert and Oriented? Yes * How many steps to enter\exit or inside your home? None * PCP Dr. De La Rosa * Pharmacy [facility] * Preadmission Environment [facility] * Other Environment [facility] * Facility Name [facility] * ADLs Independent * Equipment Rolling Walker * List name and contact numbers for known caregivers / representatives who currently or will assist patient after discharge: Harvey Haines [facility] - [phone] * Verbal permission to speak to the caregivers and representatives has been obtained from the patient. Yes * Community resources currently utilized None * Additional services required to return to the preadmission environment? No * Can the patient safely return to the preadmission environment? Yes * Has this patient been hospitalized within the prior 30 days at any hospital? No Coverage Notice Reviewer: [id number] - Shari Mason Notice Issued Date-Time: 03/24/2019 11:45 Notice Type: IM Discharge Notice Notice Delivered To: Patient Relationship to Patient: Self Ediscovery Project Manager Name: Delivery Method: HAND - Hand Delivered Kiesha Days: Prior Verbal Notification: Recipient Understood Notice: Yes Recipient Signature: Yes Med Rec Note Co-signed by Attending: Coverage Notice Comment: Last DP export: 03/25/19 1:51 p Patient Name: WARREN TAPIA Page [phone] at 1550 All edits/amendments must be made on the electronic document DICTATION DATE: 03/25/19 1549 SYSTEMS SECURITY ANALYST: YASHIRA 03/25/19 1549 RPT#: [id number] DC DATE:03/25/19 STATUS: DIS IN [facility] [address] [facility] [place] [address] END OF REPORT
== END 2019-03-25 15:49 | disposition home or self-care (01) | DRG 312 ==
LOC: D.ER 08:45 → D.M3 14:38
PROVIDERS: Family Medicine; ADMIT Family Medicine; ATTEND Family Medicine
DX: R55 Syncope and collapse (principal); N39.0 Urinary tract infection, site not specified; I69.854 Hemiplegia and hemiparesis following other cerebrovascular disease affecting left non-dominant side; D50.9 Iron deficiency anemia, unspecified; I48.91 Unspecified atrial fibrillation; F03.90 Unspecified dementia, unspecified severity, without behavioral disturbance, psychotic disturbance, mood disturbance, and anxiety; Z85.3 Personal history of malignant neoplasm of breast; M19.90 Unspecified osteoarthritis, unspecified site; I25.10 Atherosclerotic heart disease of native coronary artery without angina pectoris; W19.XXXA Unspecified fall, initial encounter; Z95.2 Presence of prosthetic heart valve; K21.9 Gastro-esophageal reflux disease without esophagitis; E03.9 Hypothyroidism, unspecified; I10 Essential (primary) hypertension; E78.5 Hyperlipidemia, unspecified; I48.0 Paroxysmal atrial fibrillation

== ENCOUNTER 2019-04-21 12:11 | Emergency (ER) | payer MEDICARE, BC ==
[~2019-04-21] VITALS: Ht 157.5 cm; Wt 47.3 kg
[~2019-04-21 12:11] MED LIST changes: +CIPRO500 MG PO; +VITAMIN D31000 UNI2 PO
[2019-04-21 12:20] VITALS: Ht 157.5 cm; Wt 47.3 kg
[2019-04-21 12:59] LABS: APTT 24.2 SECONDS (22.8-39.4); INR 1.54 (0.85-1.17); PROTIME 17.9 SECONDS (11.6-15.0)
[2019-04-21 13:03] LABS: BASOPHILS 0.5 % (0-2); EOSINOPHILS 11.9 % (0-7); HEMATOCRIT 32.1 % (36.0-48.0); HEMOGLOBIN 10.4 g/dL (12-16); IMMATURE GRANULOCYTES 0.2 % (0-5); LYMPHOCYTES 25.6 % (15-50); MCHC 32.4 g/dL (31.0-37.0); MCV 89.4 fL (80.0-100.0); MEAN PLATELET VOLUME 10.1 fL (7.4-10.4); MONOCYTES 10.4 % (2-11); NEUTROPHILS 51.4 % (40-80); PLATELET COUNT 271 10x3/uL (130-400); RBC 3.59 10x6/uL (4.00-5.40); RDW 14.9 % (11.5-14.5); WBC 6.3 10x3/uL (4.8-10.8)
[2019-04-21 13:07] LABS: ALBUMIN 2.8 g/dL (3.4-5.0); ALKALINE PHOSPHATASE 60 U/L (46-116); ALT (SGPT) 12 U/L (10-68); BILIRUBIN - TOTAL 0.26 mg/dL (0.2-1.3); CALC OSMOLALITY 279 mosm/kg (275-300); CALCIUM 8.5 mg/dL (8.5-10.1); CARBON DIOXIDE 29.2 mmol/L (21.0-32.0); CHLORIDE - SERUM 106 mmol/L (98-107); CREATININE - SERUM 0.9 mg/dL (0.6-1.3); GLUCOSE 85 mg/dL (74-106); PROTEIN - SERUM 6.2 g/dL (6.4-8.2); SODIUM 141 mmol/L (136-145); UREA NITROGEN 12 mg/dL (7-18); eGFR NON AFRICAN AMERICAN 62 mL/min (90-120)
[2019-04-21 13:23] LABS: CKMB 1.1 U/L (0.0-3.6); CREATINE KINASE 44 UL (21-215); MAGNESIUM - SERUM 1.9 mg/dL (1.8-2.4); TROPONIN-I < 0.017 ng/mL (0.000-0.060)
[2019-04-21 15:01] VITALS: BP 138/74
== END 2019-04-21 15:02 ==
LOC: D.ER 12:11
PROVIDERS: Family Medicine
DX: R07.89 Other chest pain (principal); M54.9 Dorsalgia, unspecified; E03.9 Hypothyroidism, unspecified

== ENCOUNTER 2020-04-01 00:41 | Inpatient (IN) | payer MEDICARE, BC ==
[~2020-04-01] VITALS: Ht 157.5 cm; Wt 49.9 kg
--- NOTE | 2020-04-01 00:58 | NUR ---
PT TO RADIOLOGY VIA STRETCHER AT THIS TIME.
[2020-04-01] MEDS ORDERED: CRANBERRY TABLET PO (01:05)
[2020-04-01] MEDS ORDERED: CLOTRIM ANTIFUN15 GM TOPICAL (01:05)
[2020-04-01] MEDS ORDERED: MILK OF MAGNESI30 ML PO (01:06)
[2020-04-01] MEDS ORDERED: ATIVAN0.5 MG PO (01:06)
[2020-04-01] MEDS ORDERED: PROTONIX40 MG PO (01:07)
[2020-04-01] MEDS ORDERED: SYNTHROID88 MCG PO (01:08)
[2020-04-01] MEDS ORDERED: ACETAMINOPHEN325 MG PO (01:08)
[2020-04-01] MEDS ORDERED: ZOCOR40 MG PO (01:08)
[2020-04-01] MEDS ORDERED: VITAMIN D1000 UNIT PO (01:09)
[2020-04-01] MEDS ORDERED: VENTOLIN HFA [SP8 GM INH (01:09)
--- NOTE | 2020-04-01 01:15 | NUR ---
JEANNIE ORTEGA, PT SON CALLED TO CHECK ON PT. CALL BACK [phone]
--- NOTE | 2020-04-01 01:30 | NUR ---
PT RETURNED FROM RADIOLOGY.
[2020-04-01 01:43] LABS: BASOPHILS 0.5 % (0-2); EOSINOPHILS 10.5 % (0-7); HEMATOCRIT 33.8 % (36.0-48.0); HEMOGLOBIN 10.6 g/dL (12-16); IMMATURE GRANULOCYTES 0.2 % (0-5); LYMPHOCYTES 13.7 % (15-50); MCH 29.9 pg (26.0-34.0); MCHC 31.4 g/dL (31.0-37.0); MCV 95.2 fL (80.0-100.0); MEAN PLATELET VOLUME 9.4 fL (7.4-10.4); MONOCYTES 7.1 % (2-11); PLATELET COUNT 257 10x3/uL (130-400); RBC 3.55 10x6/uL (4.00-5.40); RDW 14.4 % (11.5-14.5)
[2020-04-01 01:50] LABS: ANION GAP 9.8 mmol/L (8-16); CARBON DIOXIDE 28.6 mmol/L (21.0-32.0); CREATININE - SERUM 0.9 mg/dL (0.6-1.3); POTASSIUM - SERUM 3.4 mmol/L (3.5-5.1)
[2020-04-01 01:52] LABS: APTT 22.6 SECONDS (22.8-39.4); BILIRUBIN NEGATIVE (NEGATIVE); GLUCOSE NEGATIVE (NEGATIVE); INR 1.07 (0.85-1.17); KETONE NEGATIVE (NEGATIVE); NITRITE POSITIVE (NEGATIVE); PROTIME 13.9 SECONDS (11.6-15.0); UROBILINOGEN NORMAL (NORMAL)
[2020-04-01 01:54] LABS: BACTERIA MANY /hpf (NEGATIVE); EPITHELIAL CELLS 0-5 /hpf (0-5); RED CELLS - URINE 0-5 /hpf (0-5)
[2020-04-01 01:59] LABS: ALBUMIN 3.1 g/dL (3.4-5.0); BILIRUBIN - TOTAL 0.33 mg/dL (0.2-1.3); PROTEIN - SERUM 6.6 g/dL (6.4-8.2)
--- NOTE | 2020-04-01 02:00 | NUR ---
PT'S WOUNDS CLEANED WITH MICRO KLENZ SOLUTION AND STERI STRIPS APPLIED TO ABRASION ON RIGHT PERIORBITAL AREA AND BILAT KNEES. PT TOLERATED WELL.
[2020-04-01 02:19] VITALS: BP 171/72
--- NOTE | 2020-04-01 02:30 | NUR ---
PT'S C COLLAR REMOVED PER MD ORDERS
[2020-04-01 02:47] LABS: THYROID STIMULATING HORMONE 1.75 uIU/mL (0.36-3.74)
[2020-04-01 03:26] VITALS: BP 138/54; BMI 20.1
--- NOTE | 2020-04-01 06:22 | NUR ---
ASSESSED AT THE TIME OF ADMISSION FROM ER. PT IS VERY CONFUSED AND FORGETFUL. SHE ASKED THE SAME QUESTIONS REPEATEDLY. SHE IS ABLE TO USE THE BEDPAN TO VOID AND JUST NOW WAS ASSISTED UP TO THE BATHROOM WITH ONE PERSON ASSIST. SHE NOW HAS A BRIEF ON FOR INCONT.. SHE IS ABLE TO SWALLOW HER MEDS EASILY AND WE HAVE PUT A OPSITE ON HER SKIN SCRAPES.
--- NOTE | 2020-04-01 07:30 | NUR ---
SHE IS CONFUSED, THIS IS HER NORMAL. THE BED ALARM IS ON AND THE CALL LIGHT IS WITHIN REACH. SHE HAS ABRASIONS ON BILATERAL ELBOWS AND KNEES FROM HER FALL AT HOME.
[2020-04-01 09:22] VITALS: BP 101/68
[2020-04-01 11:41] VITALS: BP 149/66
[2020-04-01 11:52] LABS: HEMOGLOBIN 10.8 g/dL (12-16)
[2020-04-01 14:41] VITALS: Ht 157.5 cm; Wt 49.9 kg
[2020-04-01 17:22] VITALS: BP 166/71
[2020-04-01 20:00] VITALS: BP 112/59
--- NOTE | 2020-04-01 20:30 | NUR ---
PATIENT ORIENTED TO SELF ONLY. REPEATADLY ASK SAME QUESTION.IV TO LFA INTACT NO REDNESS OR EDEMA NOTED.HAS BRUSING TO FACE AND ARMS FROM PREVIOUS FALL.CL IN REACH. BED ALARM ON
[2020-04-02] VITALS: BP 108/54; BP 110/54
--- NOTE | 2020-04-02 02:51 | NUR ---
I have reviewed this patient and I concur with the Shift Assessment completed by the Licensed Practical Nurse today this shift.
--- NOTE | 2020-04-02 04:58 | NUR ---
BED ALARM SOUNDING. PATIENT STANDING AT SIDE OF BED. HAS PULLED IV OUT.STATING SHE NEEDS TO GO TO BATHROOM. PUREWICK LYING IN FLOOR. PATIENT ASSISTED TO BATHROOM AND BACK TO BED. REFUSES TO LET THIS NURSE ATTEMPT TO RESTART IV. PATIENT HITTING AND KICKING TELLING ME TO GET OUT OF HER ROOM. SR UP X 3. BED ALARM ON. CL IN REACH
--- NOTE | 2020-04-02 05:17 | NUR ---
PATIENT REFUSES AM MEDS. STATES"GET OUT OF MY ROOM,I'M NOT TAKING ANYTHING FROM YOU.GET OUT".ATTEMPTED TO REORIENTATE PATIENT WITHOUT SUCCESS. STATE"GET OUT"
[2020-04-02 06:54] LABS: CALC OSMOLALITY 267 mosm/kg (275-300); CALCIUM 8.7 mg/dL (8.5-10.1); CARBON DIOXIDE 23.3 mmol/L (21.0-32.0); CHLORIDE - SERUM 102 mmol/L (98-107); CREATININE - SERUM 0.7 mg/dL (0.6-1.3); GLUCOSE 82 mg/dL (74-106); MAGNESIUM - SERUM 1.8 mg/dL (1.8-2.4); PHOSPHOROUS 3.4 mg/dL (2.5-4.9); POTASSIUM - SERUM 4.6 mmol/L (3.5-5.1); SODIUM 135 mmol/L (136-145); UREA NITROGEN 10 mg/dL (7-18); eGFR NON AFRICAN AMERICAN 83 mL/min (90-120)
[2020-04-02 07:50] LABS: BASOPHILS 0.5 % (0-2); EOSINOPHILS 9.2 % (0-7); HEMATOCRIT 36.3 % (36.0-48.0); HEMOGLOBIN 11.6 g/dL (12-16); IMMATURE GRANULOCYTES 0.1 % (0-5); LYMPHOCYTES 13.6 % (15-50); MCH 30.1 pg (26.0-34.0); MCV 94.3 fL (80.0-100.0); MEAN PLATELET VOLUME 9.1 fL (7.4-10.4); MONOCYTES 10.7 % (2-11); NEUTROPHILS 65.9 % (40-80); PLATELET COUNT 279 10x3/uL (130-400); RBC 3.85 10x6/uL (4.00-5.40); RDW 14.3 % (11.5-14.5); WBC 8.1 10x3/uL (4.8-10.8)
--- NOTE | 2020-04-02 09:07 | NUR ---
CONFUSED TRYING TO GET OUT OF BED, WANTS TO SEE HER SON, BED ALARM IN PLACE
[2020-04-02 09:12] VITALS: BP 190/70
[2020-04-02] MEDS ORDERED: LEVOFLOXACIN500 MG PO (10:57)
--- NOTE | 2020-04-02 13:07 | NUR ---
REPORT CALLED TO BELA AT [facility], PT HAS HAD DOSE OF LEVAQUIN TODAY, [facility] CALLED TO TRANSFER
[2020-04-02 13:11] VITALS: BP 164/56
--- NOTE | 2020-04-02 15:05 | NUR ---
TAKEN FROM HOSPITAL PER AMBULANCE
== END 2020-04-02 15:06 | DRG 605 ==
LOC: D.ER 00:41 → OBSVTIME 02:26 → D.MS 02:26
PROVIDERS: Emergency Medicine; ADMIT Family Medicine; ATTEND Family Medicine
DX: S00.83XA Contusion of other part of head, initial encounter (principal); N39.0 Urinary tract infection, site not specified; W19.XXXA Unspecified fall, initial encounter; I10 Essential (primary) hypertension; E78.5 Hyperlipidemia, unspecified; E03.9 Hypothyroidism, unspecified; I48.91 Unspecified atrial fibrillation; S80.01XA Contusion of right knee, initial encounter; S40.021A Contusion of right upper arm, initial encounter; R53.1 Weakness

== ENCOUNTER 2020-04-11 01:26 | Emergency (ER) | payer MEDICARE, BC ==
[~2020-04-11] VITALS: Ht 157.5 cm; Wt 43.2 kg
[~2020-04-11 01:26] MED LIST changes: +ACETAMINOPHEN325 MG PO; +ATIVAN0.5 MG PO; +CLOTRIM ANTIFUN15 GM TOPICAL; +CRANBERRY TABLET PO; +LEVOFLOXACIN500 MG PO; +MILK OF MAGNESI30 ML PO; +SYNTHROID88 MCG PO; +VENTOLIN HFA [SP8 GM INH; +VITAMIN D1000 UNIT PO
[2020-04-11 01:28] VITALS: Ht 157.5 cm; Wt 43.2 kg
[2020-04-11 01:46] LABS: HEMATOCRIT 33.3 % (36.0-48.0); LYMPHOCYTES 19.7 % (15-50); MCH 30.7 pg (26.0-34.0); MEAN PLATELET VOLUME 8.3 fL (7.4-10.4); NEUTROPHILS 63.8 % (40-80); PLATELET COUNT 316 10x3/uL (130-400); RBC 3.58 10x6/uL (4.00-5.40); RDW 14.3 % (11.5-14.5); WBC 8.7 10x3/uL (4.8-10.8)
[2020-04-11 01:54] LABS: ANION GAP 8.8 mmol/L (8-16); CALCIUM 8.8 mg/dL (8.5-10.1); CARBON DIOXIDE 29.8 mmol/L (21.0-32.0); POTASSIUM - SERUM 3.6 mmol/L (3.5-5.1)
[2020-04-11 01:55] LABS: PROTIME 13.1 SECONDS (11.6-15.0)
[2020-04-11 01:57] LABS: BILIRUBIN NEGATIVE (NEGATIVE); GLUCOSE NEGATIVE (NEGATIVE); KETONE NEGATIVE (NEGATIVE); NITRITE NEGATIVE (NEGATIVE); SPECIFIC GRAVITY 1.005 (1.005-1.020); UROBILINOGEN NORMAL (NORMAL)
[2020-04-11 02:10] LABS: ALBUMIN 3.4 g/dL (3.4-5.0); BILIRUBIN - TOTAL 0.29 mg/dL (0.2-1.3); PROTEIN - SERUM 6.9 g/dL (6.4-8.2); THYROID STIMULATING HORMONE 2.31 uIU/mL (0.36-3.74)
[2020-04-11 04:12] VITALS: BP 112/70
== END 2020-04-11 04:13 ==
LOC: D.ER 01:26
PROVIDERS: Emergency Medicine
DX: Z91.81 History of falling (principal); Z86.73 Personal history of transient ischemic attack (TIA), and cerebral infarction without residual deficits; E07.9 Disorder of thyroid, unspecified; Z95.1 Presence of aortocoronary bypass graft; F41.9 Anxiety disorder, unspecified; F03.90 Unspecified dementia, unspecified severity, without behavioral disturbance, psychotic disturbance, mood disturbance, and anxiety

== ENCOUNTER 2020-06-23 13:18 | Emergency (ER) | payer MEDICARE, BC ==
[~2020-06-23] VITALS: Ht 157.5 cm; Wt 61.4 kg
[2020-06-23 13:22] VITALS: Ht 157.5 cm; Wt 61.4 kg
[2020-06-23 14:56] LABS: BASOPHILS 0.1 % (0-2); EOSINOPHILS 1.6 % (0-7); HEMATOCRIT 35.5 % (36.0-48.0); HEMOGLOBIN 11.5 g/dL (12-16); IMMATURE GRANULOCYTES 0.2 % (0-5); LYMPHOCYTES 13.8 % (15-50); MCH 29.7 pg (26.0-34.0); MCHC 32.4 g/dL (31.0-37.0); MCV 91.7 fL (80.0-100.0); MEAN PLATELET VOLUME 9.4 fL (7.4-10.4); NEUTROPHILS 77.3 % (40-80); PLATELET COUNT 298 10x3/uL (130-400); RBC 3.87 10x6/uL (4.00-5.40); RDW 14.1 % (11.5-14.5); WBC 8.5 10x3/uL (4.8-10.8)
[2020-06-23 14:59] LABS: ANION GAP 10.7 mmol/L (8-16); CALCIUM 9.4 mg/dL (8.5-10.1); CARBON DIOXIDE 27.3 mmol/L (21.0-32.0); CREATININE - SERUM 1.2 mg/dL (0.6-1.3)
[2020-06-23 15:04] LABS: ALBUMIN 3.3 g/dL (3.4-5.0); BILIRUBIN - TOTAL 0.38 mg/dL (0.2-1.3); INR 1.13 (0.85-1.17); PROTEIN - SERUM 7.1 g/dL (6.4-8.2); PROTIME 14.5 SECONDS (11.6-15.0)
[2020-06-23 16:09] LABS: BILIRUBIN NEGATIVE (NEGATIVE); KETONE NEGATIVE (NEGATIVE); NITRITE NEGATIVE (NEGATIVE); UROBILINOGEN NORMAL mg/dL (< 2)
[2020-06-23 16:10] LABS: BACTERIA MANY HPF (NONE SEEN); EPITHELIAL CELLS OCC /hpf (0-5)
[2020-06-23 16:14] VITALS: BP 172/69
== END 2020-06-23 18:00 ==
LOC: D.ER 13:18
PROVIDERS: Family Medicine
DX: S39.012A Strain of muscle, fascia and tendon of lower back, initial encounter (principal); W19.XXXA Unspecified fall, initial encounter; D64.9 Anemia, unspecified; S16.1XXA Strain of muscle, fascia and tendon at neck level, initial encounter; N18.9 Chronic kidney disease, unspecified; S09.90XA Unspecified injury of head, initial encounter; S80.11XA Contusion of right lower leg, initial encounter; S40.021A Contusion of right upper arm, initial encounter; E87.6 Hypokalemia; S00.03XA Contusion of scalp, initial encounter; S81.801A Unspecified open wound, right lower leg, initial encounter; I10 Essential (primary) hypertension; I48.91 Unspecified atrial fibrillation; I20.9 Angina pectoris, unspecified